=== PATIENT | female | born 1960 | race Caucasian/White ===

== ENCOUNTER → 2023-09-15 11:35 | Outpatient (REF) | payer BC, SELFPAY ==
[2023-09-15 15:34] LABS: Albumin 4.2 g/dl (3.5-5.0); Blood Urea Nitrogen 38 mg/dl (7-17); Calcium 8.8 mg/dl (8.4-10.2); Carbon Dioxide 24 mmol/L (22-30); Chloride 105 mmol/L (98-107); Glucose 108 mg/dl (70-99); Phosphorus 5.6 mg/dl (2.5-4.5); Potassium 4.2 mmol/L (3.5-5.1); Sodium 139 mmol/L (135-145); eGFR 38.43
[2023-09-15 15:52] LABS: Urine Protein 264 mg/dl (0-12)
== END ==
LOC: HWLAB 11:35
PROVIDERS: ATTENDING PHYSICIAN Internal Medicine; FAMILY PHYSICIAN Family Medicine
DX: N18.31 Chronic kidney disease, stage 3a (principal)
CPT/HCPCS: 36415; 80069; 82570; 84156

== ENCOUNTER → 2023-12-03 11:07 | Outpatient (REF) | payer BC, SELFPAY ==
[2023-12-03 11:39] LABS: % Basophils 0.9 % (0-2); % Eosinophils 3.7 % (0-6); % Immature Granulocytes 0.6 % (0-0.5); % Lymphocytes 20.6 % (20.5-51.1); % Monocytes 10.4 % (1.7-9.3); % Neutrophils 63.8 % (42.2-75.2); Absolute Basophils 0.1 10^3/uL (0-0.2); Absolute Eosinophils 0.3 10^3/uL (0-0.7); Absolute Immature Granulocytes 0.1 10^3/uL (0-0.05); Absolute Lymphocytes 1.8 10^3/uL (1.2-3.4); Absolute Monocytes 0.9 10^3/uL (0.1-0.6); Absolute Neutrophils 5.5 10^3/uL (1.4-6.5); Hematocrit 36.4 % (37.0-47.0); Hemoglobin 11.4 g/dL (12.0-16.0); Mean Corp Hgb Conc. 31.3 g/dL (33.0-37.0); Mean Corpuscular Hgb 33.8 pg (27.0-31.0); Nucleated Red Blood Cells % 0 %; Platelet Count 200 10^3/uL (130-400); Red Blood Cell Count 3.37 10^6/uL (4.20-5.40); Red Cell Dist. Width 13.8 % (11.5-14.5); White Blood Cell Count 8.6 10^3/uL (4.8-10.8)
[2023-12-03 12:53] LABS: Blood Urea Nitrogen 49 mg/dl (7-17); Calcium 8.6 mg/dl (8.4-10.2); Carbon Dioxide 21 mmol/L (22-30); Chloride 109 mmol/L (98-107); Glucose 85 mg/dl (70-99); Phosphorus 5.7 mg/dl (2.5-4.5); Potassium 5.5 mmol/L (3.5-5.1); Sodium 140 mmol/L (135-145); eGFR 33.07
[2023-12-03 14:32] LABS: Protein/creatinine Ratio 2.2; Urine Protein 117 mg/dl
== END ==
LOC: REG 11:07
PROVIDERS: ATTENDING PHYSICIAN Internal Medicine; FAMILY PHYSICIAN Family Medicine
DX: N18.32 Chronic kidney disease, stage 3b (principal); D64.9 Anemia, unspecified; E87.5 Hyperkalemia; I10 Essential (primary) hypertension
CPT/HCPCS: 36415; 80069; 82570; 84156; 85025

== ENCOUNTER → 2023-12-25 10:07 | Outpatient (REF) | payer BC, SELFPAY ==
[2023-12-25 12:05] LABS: Albumin 3.6 g/dl (3.5-5.0); Blood Urea Nitrogen 39 mg/dl (7-17); Calcium 8.8 mg/dl (8.4-10.2); Carbon Dioxide 23 mmol/L (22-30); Chloride 110 mmol/L (98-107); Glucose 82 mg/dl (70-99); Phosphorus 4.1 mg/dl (2.5-4.5); Potassium 4.4 mmol/L (3.5-5.1); Sodium 141 mmol/L (135-145); eGFR 38.43
== END ==
LOC: HWLAB 10:07
PROVIDERS: ATTENDING PHYSICIAN Internal Medicine; FAMILY PHYSICIAN Family Medicine
DX: N18.31 Chronic kidney disease, stage 3a (principal)
CPT/HCPCS: 36415; 80069

== ENCOUNTER → 2024-01-15 07:26 | Outpatient (REF) | payer BC, SELFPAY | LOC: PAVMRI 07:26 | PROVIDERS: ATTENDING PHYSICIAN Specialist; FAMILY PHYSICIAN Family Medicine | DX: G35 Multiple sclerosis (principal) | CPT/HCPCS: 72157; A9575 ==

== ENCOUNTER → 2024-01-18 13:29 | Outpatient (REF) | payer BC, SELFPAY | LOC: PAVMRI 13:29 | PROVIDERS: ATTENDING PHYSICIAN Specialist; FAMILY PHYSICIAN Family Medicine | DX: G35 Multiple sclerosis (principal) | CPT/HCPCS: 70553; 72156; A9575 ==

== ENCOUNTER → 2024-02-20 11:17 | Outpatient (REF) | payer BC, SELFPAY ==
[2024-02-20 12:38] LABS: Albumin 4.1 g/dl (3.5-5.0); Blood Urea Nitrogen 43 mg/dl (7-17); Calcium 9.2 mg/dl (8.4-10.2); Carbon Dioxide 25 mmol/L (22-30); Chloride 108 mmol/L (98-107); Glucose 87 mg/dl (70-99); Phosphorus 4.7 mg/dl (2.5-4.5); Potassium 4.6 mmol/L (3.5-5.1); Sodium 145 mmol/L (135-145); eGFR 38.43
[2024-02-20 13:46] LABS: Urine Protein 259 mg/dl (0-12)
== END ==
LOC: REG 11:17
PROVIDERS: ATTENDING PHYSICIAN Internal Medicine; FAMILY PHYSICIAN Family Medicine
DX: N18.31 Chronic kidney disease, stage 3a (principal)
CPT/HCPCS: 36415; 80069; 82570; 84156

== ENCOUNTER → 2024-06-16 09:36 | Outpatient (REF) | payer MEDICARE, SELFPAY ==
[2024-06-16 11:43] LABS: % Basophils 1.1 % (0-2); % Eosinophils 4.7 % (0-6); % Immature Granulocytes 0.9 % (0-0.5); % Lymphocytes 25.8 % (20.5-51.1); % Monocytes 8.2 % (1.7-9.3); % Neutrophils 59.3 % (42.2-75.2); Absolute Basophils 0.1 10^3/uL (0-0.2); Absolute Eosinophils 0.4 10^3/uL (0-0.7); Absolute Immature Granulocytes 0.1 10^3/uL (0-0.05); Absolute Lymphocytes 2.2 10^3/uL (1.2-3.4); Absolute Monocytes 0.7 10^3/uL (0.1-0.6); Absolute Neutrophils 5.1 10^3/uL (1.4-6.5); Hemoglobin 11.5 g/dL (12.0-16.0); Mean Corp Hgb Conc. 30.3 g/dL (33.0-37.0); Mean Corpuscular Volume 109.2 fL (81.0-99.0); Mean Platelet Volume 9.5 fL (7.4-10.4); Nucleated Red Blood Cells % 0 %; Platelet Count 223 10^3/uL (130-400); Red Blood Cell Count 3.48 10^6/uL (4.20-5.40); Red Cell Dist. Width 14.6 % (11.5-14.5); White Blood Cell Count 8.6 10^3/uL (4.8-10.8)
[2024-06-16 11:53] LABS: Albumin 3.5 g/dl (3.5-5.0); Blood Urea Nitrogen 44 mg/dl (7-17); Carbon Dioxide 23 mmol/L (22-30); Chloride 111 mmol/L (98-107); Glucose 100 mg/dl (70-99); Phosphorus 5.4 mg/dl (2.5-4.5); Potassium 4.9 mmol/L (3.5-5.1); Sodium 140 mmol/L (135-145); eGFR 28.76
[2024-06-16 12:07] LABS: Urine Protein 116 mg/dl (0-12)
== END ==
LOC: HWLAB 09:36
PROVIDERS: ATTENDING PHYSICIAN Internal Medicine; FAMILY PHYSICIAN Family Medicine
DX: N18.31 Chronic kidney disease, stage 3a (principal)
CPT/HCPCS: 36415; 80069; 82570; 84156; 85025

== ENCOUNTER → 2024-07-21 09:27 | Outpatient (REF) | payer MEDICARE, SELFPAY ==
[2024-07-21 13:08] LABS: Albumin 3.7 g/dl (3.5-5.0); Blood Urea Nitrogen 34 mg/dl (7-17); Calcium 8.3 mg/dl (8.4-10.2); Carbon Dioxide 26 mmol/L (22-30); Chloride 107 mmol/L (98-107); Glucose 92 mg/dl (70-99); Phosphorus 4.2 mg/dl (2.5-4.5); Potassium 4.3 mmol/L (3.5-5.1); Sodium 139 mmol/L (135-145)
== END ==
LOC: HWRAD 09:27
PROVIDERS: ATTENDING PHYSICIAN Internal Medicine; FAMILY PHYSICIAN Family Medicine
DX: N18.31 Chronic kidney disease, stage 3a (principal)
CPT/HCPCS: 36415; 76775; 80069

== ENCOUNTER → 2024-08-20 09:04 | Outpatient (REF) | payer MEDICARE, SELFPAY ==
[2024-08-20 10:48] LABS: % Basophils 1.1 % (0-2); % Eosinophils 4.4 % (0-6); % Immature Granulocytes 0.8 % (0-0.5); % Lymphocytes 23.7 % (20.5-51.1); % Monocytes 7.6 % (1.7-9.3); % Neutrophils 62.4 % (42.2-75.2); Absolute Basophils 0.1 10^3/uL (0-0.2); Absolute Eosinophils 0.4 10^3/uL (0-0.7); Absolute Immature Granulocytes 0.1 10^3/uL (0-0.05); Absolute Monocytes 0.7 10^3/uL (0.1-0.6); Absolute Neutrophils 5.3 10^3/uL (1.4-6.5); Hematocrit 39.6 % (37.0-47.0); Hemoglobin 12.3 g/dL (12.0-16.0); Mean Corp Hgb Conc. 31.1 g/dL (33.0-37.0); Mean Corpuscular Volume 106.2 fL (81.0-99.0); Mean Platelet Volume 9.3 fL (7.4-10.4); Nucleated Red Blood Cells % 0 %; Platelet Count 243 10^3/uL (130-400); Red Blood Cell Count 3.73 10^6/uL (4.20-5.40); Red Cell Dist. Width 13.7 % (11.5-14.5); White Blood Cell Count 8.5 10^3/uL (4.8-10.8)
[2024-08-20 11:03] LABS: Urine Protein 151 mg/dl (0-12)
[2024-08-20 11:10] LABS: ALT (SGPT) 10 U/L (0-35); AST (SGOT) 18 U/L (14-36); Albumin 3.5 g/dl (3.5-5.0); Alkaline Phosphatase 132 U/L (38-126); Blood Urea Nitrogen 38 mg/dl (7-17); Calcium 8.9 mg/dl (8.4-10.2); Carbon Dioxide 24 mmol/L (22-30); Chloride 110 mmol/L (98-107); Glucose 86 mg/dl (70-99); HDL Cholesterol 86 mg/dl; LDL Cholesterol, Calculated 82 mg/dl; Phosphorus 4.1 mg/dl (2.5-4.5); Potassium 4.8 mmol/L (3.5-5.1); Sodium 141 mmol/L (135-145); Total Bilirubin 0.3 mg/dl (0.2-1.3); Total Cholesterol 195 mg/dl (50-199); Total Protein 5.7 g/dl (6.3-8.2); Triglyceride 139 mg/dl (10-149); Very Low Density Lipoprotein 27 mg/dl (0-30)
[2024-08-20 11:11] LABS: Glycohemoglobin (HgbA1c) 5.7 % (4.0-5.6)
[2024-08-20 11:42] LABS: TSH 2.48 uIU/ml (0.47-4.68)
== END ==
LOC: REG 09:04
PROVIDERS: ATTENDING PHYSICIAN Internal Medicine; FAMILY PHYSICIAN Family Medicine
DX: N18.31 Chronic kidney disease, stage 3a (principal); Z86.39 Personal history of other endocrine, nutritional and metabolic disease; D64.9 Anemia, unspecified; E21.3 Hyperparathyroidism, unspecified; E78.2 Mixed hyperlipidemia; E03.9 Hypothyroidism, unspecified; N18.32 Chronic kidney disease, stage 3b; Z79.899 Other long term (current) drug therapy
CPT/HCPCS: 36415; 80053; 80061; 82570; 83036; 84100; 84156; 84443; 85025

== ENCOUNTER → 2024-10-17 09:29 | Outpatient (REF) | payer MEDICARE, SELFPAY | LOC: HWWDC 09:29 | PROVIDERS: ATTENDING PHYSICIAN Family Medicine | DX: Z12.31 Encounter for screening mammogram for malignant neoplasm of breast (principal) | CPT/HCPCS: 77063; 77067 ==

== ENCOUNTER → 2024-11-15 10:09 | Outpatient (REF) | payer MEDICARE, SELFPAY ==
[2024-11-15 12:23] LABS: % Eosinophils 3.4 % (0-6); % Lymphocytes 22.9 % (20.5-51.1); % Neutrophils 63.7 % (42.2-75.2); Absolute Basophils 0.1 10^3/uL (0-0.2); Absolute Eosinophils 0.3 10^3/uL (0-0.7); Absolute Immature Granulocytes 0.1 10^3/uL (0-0.05); Absolute Monocytes 0.7 10^3/uL (0.1-0.6); Absolute Neutrophils 5.6 10^3/uL (1.4-6.5); Hemoglobin 11.6 g/dL (12.0-16.0); Mean Corp Hgb Conc. 31.4 g/dL (33.0-37.0); Mean Corpuscular Hgb 32.9 pg (27.0-31.0); Mean Corpuscular Volume 104.8 fL (81.0-99.0); Mean Platelet Volume 9.7 fL (7.4-10.4); Nucleated Red Blood Cells % 0 %; Platelet Count 251 10^3/uL (130-400); Red Blood Cell Count 3.53 10^6/uL (4.20-5.40); Red Cell Dist. Width 14.2 % (11.5-14.5); White Blood Cell Count 8.9 10^3/uL (4.8-10.8)
[2024-11-15 12:50] LABS: ALT (SGPT) 12 U/L (0-35); AST (SGOT) 19 U/L (14-36); Albumin 4.1 g/dl (3.5-5.0); Alkaline Phosphatase 144 U/L (38-126); Blood Urea Nitrogen 45 mg/dl (7-17); Calcium 8.8 mg/dl (8.4-10.2); Carbon Dioxide 20 mmol/L (22-30); Chloride 118 mmol/L (98-107); Glucose 86 mg/dl (70-99); Phosphorus 4.3 mg/dl (2.5-4.5); Potassium 5.1 mmol/L (3.5-5.1); Sodium 143 mmol/L (135-145); Total Bilirubin 0.3 mg/dl (0.2-1.3); Total Protein 6.2 g/dl (6.3-8.2); eGFR 28.76
[2024-11-15 12:54] LABS: Protein/creatinine Ratio 3.4; Urine Protein 117 mg/dl
[2024-11-15 14:00] LABS: Vitamin B12 235 pg/ml (239-931)
[2024-11-16 19:13] LABS: Intact PTH 39.8 pg/ml (13.6-85.8)
== END ==
LOC: HWLAB 10:09
PROVIDERS: ATTENDING PHYSICIAN Internal Medicine; FAMILY PHYSICIAN Family Medicine; REFERRING PHYSICIAN Specialist
DX: N18.31 Chronic kidney disease, stage 3a (principal); Z79.899 Other long term (current) drug therapy
CPT/HCPCS: 36415; 80053; 82570; 82607; 83970; 84100; 84156; 85025

== ENCOUNTER → 2024-12-05 10:03 | Outpatient (REF) | payer MEDICARE, SELFPAY ==
[2024-12-05 14:12] LABS: Albumin 3.7 g/dl (3.5-5.0); Blood Urea Nitrogen 47 mg/dl (7-17); Calcium 9.2 mg/dl (8.4-10.2); Carbon Dioxide 18 mmol/L (22-30); Chloride 115 mmol/L (98-107); Glucose 86 mg/dl (70-99); Phosphorus 5.1 mg/dl (2.5-4.5); Potassium 5.1 mmol/L (3.5-5.1); Sodium 141 mmol/L (135-145); eGFR 27.04
== END ==
LOC: HWLAB 10:03
PROVIDERS: ATTENDING PHYSICIAN Internal Medicine; FAMILY PHYSICIAN Family Medicine
DX: E78.2 Mixed hyperlipidemia (principal); E21.3 Hyperparathyroidism, unspecified; E87.5 Hyperkalemia; E83.51 Hypocalcemia; N17.9 Acute kidney failure, unspecified
CPT/HCPCS: 36415; 80069

== ENCOUNTER → 2024-12-22 07:28 | Outpatient (REF) | payer MEDICARE, SELFPAY ==
[2024-12-22 10:47] LABS: Albumin 4.2 g/dl (3.5-5.0); Blood Urea Nitrogen 26 mg/dl (7-17); Calcium 8.8 mg/dl (8.4-10.2); Carbon Dioxide 20 mmol/L (22-30); Chloride 112 mmol/L (98-107); Glucose 101 mg/dl (70-99); Potassium 4.7 mmol/L (3.5-5.1); Sodium 138 mmol/L (135-145); eGFR 35.35
== END ==
LOC: HWLAB 07:28
PROVIDERS: ATTENDING PHYSICIAN Internal Medicine; FAMILY PHYSICIAN Family Medicine
DX: E78.2 Mixed hyperlipidemia (principal); E21.3 Hyperparathyroidism, unspecified; E03.9 Hypothyroidism, unspecified; E78.5 Hyperlipidemia, unspecified; D64.9 Anemia, unspecified
CPT/HCPCS: 36415; 80069; 82570; 84156

== ENCOUNTER → 2025-02-04 10:23 | Outpatient (REF) | payer MEDICARE, SELFPAY ==
[2025-02-04 11:19] LABS: Hematocrit 35.8 % (37.0-47.0); Hemoglobin 11.0 g/dL (12.0-16.0); Mean Corp Hgb Conc. 30.7 g/dL (33.0-37.0); Mean Corpuscular Volume 104.1 fL (81.0-99.0); Nucleated Red Blood Cells % 0 %; Platelet Count 197 10^3/uL (130-400); Red Cell Dist. Width 14.1 % (11.5-14.5)
[2025-02-04 11:26] LABS: Albumin 3.9 g/dl (3.5-5.0); Blood Urea Nitrogen 51 mg/dl (7-17); Calcium 8.3 mg/dl (8.4-10.2); Carbon Dioxide 23 mmol/L (22-30); Chloride 114 mmol/L (98-107); Glucose 92 mg/dl (70-99); Potassium 5.4 mmol/L (3.5-5.1); Sodium 141 mmol/L (135-145); eGFR 25.51
[2025-02-04 11:36] LABS: Microalb - Urine Creatinine 35.100 mg/dl
[2025-02-04 15:32] LABS: Microalbumin, Random Urine > 57.0 mg/dl (0.6-1.7)
== END ==
LOC: REG 10:23
PROVIDERS: FAMILY PHYSICIAN Family Medicine; REFERRING PHYSICIAN Internal Medicine
DX: N17.9 Acute kidney failure, unspecified (principal)
CPT/HCPCS: 36415; 80069; 82043; 82570; 84155; 84156; 84165; 85025

== ENCOUNTER → 2025-02-17 16:39 | Outpatient (REF) | payer MEDICARE, SELFPAY ==
[2025-02-17 17:47] LABS: Albumin 3.8 g/dl (3.5-5.0); Blood Urea Nitrogen 37 mg/dl (7-17); Calcium 8.9 mg/dl (8.4-10.2); Carbon Dioxide 24 mmol/L (22-30); Chloride 106 mmol/L (98-107); Glucose 88 mg/dl (70-99); Potassium 4.7 mmol/L (3.5-5.1); Sodium 134 mmol/L (135-145); eGFR 32.87
== END ==
LOC: REG 16:39
PROVIDERS: ATTENDING PHYSICIAN Internal Medicine; FAMILY PHYSICIAN Family Medicine
DX: E78.2 Mixed hyperlipidemia (principal); G35 Multiple sclerosis; E03.9 Hypothyroidism, unspecified; E87.5 Hyperkalemia; N17.9 Acute kidney failure, unspecified
CPT/HCPCS: 36415; 80069

== ENCOUNTER → 2025-04-15 11:17 | Outpatient (REF) | payer MEDICARE, SELFPAY ==
[2025-04-15 13:04] LABS: Albumin 3.6 g/dl (3.5-5.0); Blood Urea Nitrogen 44 mg/dl (7-17); Calcium 9.0 mg/dl (8.4-10.2); Carbon Dioxide 25 mmol/L (22-30); Chloride 112 mmol/L (98-107); Glucose 98 mg/dl (70-99); Potassium 5.0 mmol/L (3.5-5.1); Sodium 141 mmol/L (135-145); eGFR 25.51
== END ==
LOC: REG 11:17
PROVIDERS: ATTENDING PHYSICIAN Internal Medicine; FAMILY PHYSICIAN Family Medicine; REFERRING PHYSICIAN Internal Medicine Nephrology
DX: N17.9 Acute kidney failure, unspecified (principal)
CPT/HCPCS: 36415; 80069; 82570; 84156